=== PATIENT | female | born 1965 | race Caucasian/White ===

== ENCOUNTER 2024-07-05 13:15 | Emergency (ER) | payer BC ==
[2024-07-05] MEDS ORDERED: NA CHLORIDE 0.9% 500 ML ONE (14:01)
[2024-07-05] MEDS ORDERED: LORazepam 2 MG/ML VIAL ONE (14:01)
[2024-07-05 14:09] LABS: PT Prothrombin Time 11.6 SECONDS (9.4-12.5); Protime INR 1.04
--- NOTE | 2024-07-05 14:25 | RAD REPORT ---
EXAMINATION: CT HEAD WITHOUT CONTRAST CLINICAL INDICATION: Female, 59 years old.DIZZINESS TECHNIQUE: Axial CT images from the skull base to the vertex without intravenous contrast. Coronal an d sagittal reformatted images were created from the data set. One or more of the following dose reduction techniques were used: Automated exposure control, adjustment of the mA and/or kV according to patient size, and/or iterative reconstruction. Unless otherwise specified, incidental findings do not require dedicated imaging follow-up. [id number]. COMPARISON: No prior exam. FINDINGS: INTRACRANIAL: No acute intracranial hemorrhage. No hydrocephalus. No mass effect or midline shift. No significant white matter disease. VASCULATURE: No visualized abnormalities in the arteries or dural venous sinuses. SCALP/SKULL: No significant soft tissue or osseous abnormalities. SINUSES: The visualized paranasal sinuses and mastoid air cells are predominantly clear. IMPRESSION: No acute intracranial abnormality.
[2024-07-05 14:29] LABS: Absolute Basophils 0.1 K/uL (0-0.5); Absolute Eosinophils 0.2 K/uL (0-0.5); Absolute Lymphocytes (CBC) 2.1 K/uL (0.7-4.9); Absolute Monocytes 0.6 K/uL (0.1-1.3); Basophils % 0.6 % (0-1.3); Eosinophils % 1.9 % (0-4.4); Hematocrit 40.9 % (36.0-45.0); Hemoglobin 13.7 g/dL (12.0-15.0); MCHC 33.6 g/dL (32.0-36.0); MCV 89.1 fL (80-100); MPV 8.4 fL (7.6-11.3); Neutrophils % 66.5 % (41.7-73.7); Platelets 202 thou/uL (152-406); RBC Red Blood Cell Count 4.59 M/uL (3.86-4.86); Red Cell Distribution Width 12.8 % (12.1-15.2)
[2024-07-05 14:37] LABS: ALT/SGPT 24 U/L (13-56); AST/SGOT 21 U/L (15-37); Albumin 3.5 g/dL (3.4-5.0); Alkaline Phosphatase 71 U/L (45-117); Anion Gap 9.5 mEq/L (5.0-15.0); BUN Blood Urea Nitrogen 14 mg/dL (7-18); Bicarbonate 27 mEq/L (21-32); Bilirubin Direct < 0.2 mg/dL (0-0.2); Bilirubin Indirect, Calculated 0.2 mg/dL (0.2-0.8); Bilirubin Total 0.4 mg/dL (0.2-1.0); Globulin 3.5 g/dL (2.3-3.5); Glomerular Filtration Rate 53 ml/min (=/>90); Glucose Level 107 mg/dL (74-106); Magnesium 2.5 mg/dL (1.6-2.4); NT PRO-BNP 216 pg/mL (<125); Potassium 4.5 mEq/L (3.5-5.1); Sodium Level 137 mEq/L (136-145); Troponin High Sensitivity 4.6 pg/mL (<58.9)
--- NOTE | 2024-07-05 14:50 | RAD REPORT ---
EXAM: Chest Single View HISTORY: COUGH COMPARISON: None. FINDINGS: LUNGS/PLEURA: Nodular opacity overlying the right upper lobe measuring 12 mm which is not clearly trevor cified. The lungs are otherwise clear. MEDIASTINUM: The mediastinal silhouette is within normal limits. CARDIAC: The cardiac silhouette is within normal limits. UPPER ABDOMEN: No significant abnormality. BONES: No acute fracture. LINES/TUBES/OTHER: N/A IMPRESSION: No evidence of acute cardiopulmonary disease. Right upper lobe nodule. Further evaluation with chest CT which need not be the emergent is recommended.
[2024-07-05 16:04] LABS: Specific Gravity 1.006 (1.005-1.030); Sqamous Epithelial <5 /HPF (None Seen); Urine Bacteria None Seen /HPF (<20); Urine Bilirubin NEGATIVE (Negative); Urine Blood Negative (Negative); Urine Clarity Clear (Clear); Urine Color Colorless (Yellow); Urine Culture Reflex Order NOT NEEDED; Urine Glucose NEGATIVE (Negative); Urine Ketones NEGATIVE (Negative); Urine Microscopic Reflex YN ORDER UMIC; Urine Nitrite NEGATIVE (Negative); Urine Protein NEGATIVE (Negative); Urine RBC None Seen /HPF (None Seen); Urine Urobilinogen Normal (Normal); Urine WBC <5 /HPF (<5); Urine pH 7.5 (5.0-7.0)
--- NOTE | 2024-07-05 16:17 | EDPHYS ---
Physician Documentation [facility] Name: Gabby Coronel Age: 59 yrs Sex: Female : 1965 Arrival Date: 07/05/2024 Time: 13:15 Bed 5 Private MD: ED Physician Micah Henderson HPI: 07/05 16:05 This 59 yrs old Female presents to ER via EMS with complaints of WEAKNESS, shayan SHAKEY, TINGLING. 16:05 WEAKNESS. Onset: The symptoms/episode began/occurred 2 day(s) ago. Severity of shayan symptoms: At their worst the symptoms were mild in the emergency department the symptoms are unchanged. The patient has not experienced similar symptoms in the past. Historical: - Allergies: 13:22 Codeine; jl7 - Home Meds: 13:22 None [Active]; jl7 - PMHx: 13:22 Anxiety; Depressive disorder; jl7 - Immunization history:: Adult Immunizations unknown. - Infectious Disease History:: Denies. - Social history:: Smoking status: Patient denies any tobacco usage or history of. ROS: 16:06 Constitutional: Negative for fever, chills, and weight loss, Eyes: Negative for injury, shayan pain, redness, and discharge, ENT: Negative for injury, pain, and discharge, Neck: Negative for injury, pain, and swelling, Cardiovascular: Negative for chest pain, palpitations, and edema, Respiratory: Negative for shortness of breath, cough, wheezing, and pleuritic chest pain, Abdomen/GI: Negative for abdominal pain, nausea, vomiting, diarrhea, and constipation, Back: Negative for injury and pain, : Negative for injury, bleeding, discharge, and swelling, MS/Extremity: Negative for injury and deformity, Skin: Negative for injury, rash, and discoloration, Psych: Negative for depression, anxiety, suicide ideation, homicidal ideation, and hallucinations, Allergy/Immunology: Negative for hives, rash, and allergies, Endocrine: Negative for neck swelling, polydipsia, polyuria, polyphagia, and marked weight changes, Hematologic/Lymphatic: Negative for swollen nodes, abnormal bleeding, and unusual bruising, 16:06 Neuro: Positive for tingling, weakness, SHAKEY, Exam: 16:06 Constitutional: This is a well developed, well nourished patient who is awake, alert, shayan and in no acute distress. Head/Face: Normocephalic, atraumatic. Eyes: Pupils equal round and reactive to light, extra-ocular motions intact. Lids and lashes normal. Conjunctiva and sclera are non-icteric and not injected. Cornea within normal limits. Periorbital areas with no swelling, redness, or edema. ENT: Nares patent. No nasal discharge, no septal abnormalities noted. Tympanic membranes are normal and external auditory canals are clear. Oropharynx with no redness, swelling, or masses, exudates, or evidence of obstruction, uvula midline. Mucous membranes moist. Neck: Trachea midline, no thyromegaly or masses palpated, and no cervical lymphadenopathy. Supple, full range of motion without nuchal rigidity, or vertebral point tenderness. No Meningismus. Chest/axilla: Normal chest wall appearance and motion. Nontender with no deformity. No lesions are appreciated. Cardiovascular: Regular rate and rhythm with a normal S1 and S2. No gallops, murmurs, or rubs. Normal PMI, no JVD. No pulse deficits. Respiratory: Lungs have equal breath sounds bilaterally, clear to auscultation and percussion. No rales, rhonchi or wheezes noted. No increased work of breathing, no retractions or nasal flaring. Abdomen/GI: Soft, non-tender, with normal bowel sounds. No distension or tympany. No guarding or rebound. No evidence of tenderness throughout. Back: No spinal tenderness. No costovertebral tenderness. Full range of motion. Skin: Warm, dry with normal turgor. Normal color with no rashes, no lesions, and no evidence of cellulitis. MS/ Extremity: Pulses equal, no cyanosis. Neurovascular intact. Full, normal range of motion., bilateral aka Psych: Awake, alert, with orientation to person, place and time. Behavior, mood, and affect are within normal limits. 16:06 ECG was reviewed by the Attending Physician. 16:06 Musculoskeletal/extremity: ROM: no acute changes, intact in all extremities, full active range of motion, full passive range of motion, Circulation is intact in all extremities. Sensation intact. Compartment Syndrome exam of affected extremity: is normal. no pain, no numbness, no tingling, no sensation deficit, no palor, Weight bearing: able to fully bear weight, without difficulty, DVT Exam: No signs of deep vein thrombosis. no pain, no swelling, no tenderness, negative Homans' sign noted on exam, no appreciated bluish discoloration, no erythema, no increased warmth, Vital Signs: 13:15 BP 179 / 83; Pulse 78; Resp 15; Temp 97.9; Pulse Ox 100% ; Weight 81.65 kg; Height 5 [facility] ft. 2 in. ; Pain 0/10; 13:30 BP 174 / 84; Pulse 73; Resp 18; Pulse Ox 99% ; ko1 14:30 BP 169 / 78; Pulse 68; Resp 16; Pulse Ox 99% ; ko1 16:00 BP 135 / 68; Pulse 69; Resp 16; Pulse Ox 99% ; ko1 16:50 BP 156 / 68 Supine; Pulse 72; ko1 16:51 BP 160 / 82 Sitting; Pulse 82; ko1 16:52 BP 166 / 82 Standing; Pulse 82; ko1 13:15 Body Mass Index 32.92 (81.65 kg, 157.48 cm) [facility] 13:15 Pain Scale: Adult [facility] NIH Stroke Scale Scores: 16:06 NIHSS Score: 0 shayan MDM: 13:19 Medical Screening Exam initiated [facility] 16:14 Differential Diagnosis altered mental status, sepsis, flu. Data reviewed: vital signs, [facility] nurses notes, lab test result(s), EKG, radiologic studies, CT scan, plain films. Consideration of Admission/Observation Escalation of care including admission/observation considered. I considered the following discharge prescriptions or medication management in the emergency department Medications were administered in the Emergency Department. See MAR. Independent interpretation of the following test(s) in the Emergency Department EKG: See my EKG interpretation above. Test considered but Not performed: MRI: NO MRI BRAIN. Historians other than the Patient: PT WELL INFORMED. Care significantly affected by the following chronic conditions: ANXIETY , DEPRESSION. Counseling: I had a detailed discussion with the patient and/or guardian regarding the historical points, exam findings, and any diagnostic results supporting the discharge/admit diagnosis, lab results, radiology results, the need for outpatient follow up, for definitive care, a family practitioner, a neurologist. 07/05 13:40 Order name: Basic Metabolic Panel; Complete Time: 14:45 [facility] 07/05 13:40 Order name: CBC with Diff; Complete Time: 14:45 [facility] 07/05 13:40 Order name: LFT's; Complete Time: 14:45 [facility] 07/05 13:40 Order name: Magnesium; Complete Time: 14:45 shayan 07/05 13:40 Order name: NT PRO-BNP; Complete Time: 14:45 shayan 07/05 13:40 Order name: PT-INR; Complete Time: 14:45 [facility] 07/05 13:40 Order name: Troponin HS; Complete Time: 14:45 [facility] 07/05 13:40 Order name: Urinalysis w/ reflexes [facility] 07/05 14:20 Order name: ETOH Level; Complete Time: 15:57 jl7 07/05 13:40 Order name: XRAY Chest (1 view); Complete Time: 15:57 [facility] 07/05 13:40 Order name: CT Head Brain wo Cont; Complete Time: 14:45 [facility] 07/05 13:40 Order name: Cardiac monitoring; Complete Time: 14:06 [facility] 07/05 13:40 Order name: EKG - Nurse/Tech; Complete Time: 13:54 [facility] 07/05 13:40 Order name: IV Saline Lock; Complete Time: 14:06 [facility] 07/05 13:40 Order name: Labs collected and sent; Complete Time: 14:06 [facility] 07/05 13:40 Order name: O2 Per Protocol; Complete Time: 14:06 [facility] 07/05 13:40 Order name: O2 Sat Monitoring; Complete Time: 14:06 [facility] 07/05 16:03 Order name: Misc. Order: AMBULATE; Complete Time: 17:03 [facility] 07/05 16:03 Order name: Orthostatics; Complete Time: 17:01 [facility] 07/05 16:03 Order name: PO challenge; Complete Time: 17:01 [facility] EC:06 Rate is 75 beats/min. Rhythm is regular. QRS [place] is Normal. IN interval is normal. QRS shayan interval is normal. QT interval is normal. No Q waves. T waves are Normal. No ST changes noted. Clinical impression: Normal ECG and No evidence of ischemia. Interpreted by me. Reviewed by me. Administered Medications: 14:25 Drug: NS 0.9% IV 500 ml 500 ml IV at 1 bolus once; to be given as a bolus over 30 jl7 minutes Volume: 500 ml; Route: IV; Rate: 1 bolus; Site: right hand; 15:00 Follow up: Response: No adverse reaction; IV Status: Completed infusion; IV Intake: jl7 500ml 14:25 Drug: Ativan IVP 1 mg IVP once Route: IVP; Site: right hand; jl7 15:00 Follow up: Response: No adverse reaction 7 17:03 Drug: Aspirin PO Chewable Tablet 81 mg PO once Route: PO; jl7 17:17 Follow up: Response: No adverse reaction; Medication administered at discharge. ko1 Disposition Summary: 07/05/24 16:17 Discharge Ordered Notes: Location: Home shayan Problem: new shayan Symptoms: have improved shayan Condition: Stable shayan Diagnosis - Weakness shayan - Anxiety disorder, unspecified shayan Followup: shayan - With: Private Physician - When: 2 - 3 days - Reason: Recheck today's complaints, Continuance of care, Re-evaluation by your physician Followup: shayan - With: Jose La MD - When: 2 - 3 days - Reason: Recheck today's complaints, Re-evaluation by your physician Discharge Instructions: - Discharge Summary Sheet shayan - Fall Prevention in the Home, Adult shayan - Weakness shayan - Fatigue shayan - Fall Prevention in the Home, Adult, [id number] shayan - Weakness, [id number]-[id number] shayan - Aspirin and Your Heart shayan - Deconditioning shayan - Managing Anxiety, Adult shayan Forms: - Medication Reconciliation Form shayan - Antibiotic Education shayan - Prescription Opioid Use shayan - Patient Portal Instructions [facility] - Leadership Thank You Letter [facility] NIH Stroke Scale - NIH Stroke Score Date: 07/05/2024 Time: 16:06 Total Score = 0 10. Dysarthria (speech clarity - read or repeat words) - 0(Normal) 11. Extinction and Inattention (visual/tactile/auditory/spatial/personal) - 0(No abnormality) 1a. Level of Consciousness (LOC) - 0(Alert) 1b. Level of Consciousness (LOC) (Month \T\ Age) - 0(Both) 1c. LOC Commands (Open \T\ Closes Eyes/Dental Treatment Coordinator) - 0(Both) 2. Best Gaze (Lateral Gaze Paresis) - 0(Normal) 3. Visual Field Loss - 0(No visual loss) 4. Facial Palsy - 0(Normal) 5a. Left Arm: Motor (10-second hold) - 0(No drift) 5b. Right Arm: Motor (10-second hold) - 0(No drift) 6a. Left Leg: Motor (5-second hold - always test supine) - 0(No drift) 6b. Right Leg: Motor (5-second hold - always test supine) - 0(No drift) 7. Limb Ataxia (finger/nose \T\ heel/vicente - test with eyes open) - 0(Absent) 8. Sensory Loss (pinprick arms/legs/face) - 0(Normal) 9. Best Language: Aphasia (description/naming/reading) - 0(No aphasia) Initials: shayan Signatures: Dispatcher [employer] EDMS Micah Henderson MD MD cha Leal, Jahala, RN RN jl7 Ceci Corona RN ko1 Corrections: (The following items were deleted from the chart) 13:23 13:22 Allergies: No Known Allergies; jl7 jl7 13:40 13:40 BASIC METABOLIC PANEL+C.LAB.BRZ ordered. EDMS EDMS 13:40 13:40 CBC+H.LAB.BRZ ordered. EDMS EDMS 13:40 13:40 HEPATIC FUNCTION+C.LAB.BRZ ordered. EDMS EDMS 13:40 13:40 MAGNESIUM+C.LAB.BRZ ordered. EDMS EDMS 13:40 13:40 PROBNP+C.LAB.BRZ ordered. EDMS EDMS 13:40 13:40 PROTIME (+INR)+COAG.LAB.BRZ ordered. EDMS EDMS 13:40 13:40 Troponin High Sensitivity+C.LAB.BRZ ordered. EDMS EDMS 13:40 13:40 Urinalysis+U.LAB.BRZ ordered. EDMS EDMS 13:40 13:40 Chest Single View+RAD.RAD.BRZ ordered. EDMS EDMS 13:41 13:40 Head Brain Wo Cont+CT.RAD.BRZ ordered. EDMS EDMS
--- NOTE | 2024-07-05 16:17 | ER ---
Nurse's Notes [facility] Name: Gabby Coronel Age: 59 yrs Sex: Female : 1965 Arrival Date: 07/05/2024 Time: 13:15 Bed 5 Private MD: Diagnosis: Weakness;Anxiety disorder, unspecified Presentation: 07/05 13:15 Chief complaint: EMS states: Toned out for tingling arms, pt reported tingling to right jl7 leg yesterday and today bilateral arms. 13:15 Method Of Arrival: EMS: [facility] jl7 13:15 Coronavirus screen: At this time, the client does not indicate any symptoms associated jl7 with coronavirus-19. Ebola Screen: No symptoms or risks identified at this time. Initial Sepsis Screen: Does the patient meet any 2 criteria? No. Patient's initial sepsis screen is negative. Does the patient have a suspected source of infection? No. Patient's initial sepsis screen is negative. Risk Assessment: Do you want to hurt yourself or someone else? Patient reports no desire to harm self or others. Onset of symptoms was July 04, 2024. Care prior to arrival: None. 13:15 Acuity: HARIKA 3 jl7 Triage Assessment: 13:22 General: Appears in no apparent distress. uncomfortable, Behavior is cooperative, jl7 crying. Pain: Denies pain. Neuro: Level of Consciousness is awake, alert, obeys commands, Oriented to person, place, time, situation, Reports tingling to bilateral arms. Cardiovascular: Patient's skin is warm and dry. Respiratory: Airway is patent Respiratory effort is even, unlabored, Respiratory pattern is regular, symmetrical. Derm: Skin is pink, warm \T\ dry. Historical: - Allergies: 13:22 Codeine; jl7 - Home Meds: 13:22 None [Active]; jl7 - PMHx: 13:22 Anxiety; Depressive disorder; jl7 - Immunization history:: Adult Immunizations unknown. - Infectious Disease History:: Denies. - Social history:: Smoking status: Patient denies any tobacco usage or history of. Screenin:00 [facility] ED Fall Risk Assessment (Adult) History of falling in the last 3 months, ko1 including since admission No falls in past 3 months (0 pts) Confusion or Disorientation No (0 pts) Intoxicated or Sedated No (0 pts) Impaired Gait Yes (1 pt) Mobility Assist Device Used Yes (1 pt) Altered Elimination No (0 pt) Score/Fall Risk Level 0 - 2 = Low Risk Oriented to surroundings, Maintained a safe environment, Educated pt \T\ family on fall prevention, incl call for assistance when getting out of bed, Assessed \T\ reinforced patient's understanding of fall precautions, Provided non-skid footwear, Hourly rounding (assess needs \T\ fall precautionary measures) done. Abuse screen: Denies threats or abuse. Denies injuries from another. Nutritional screening: No deficits noted. Tuberculosis screening: No symptoms or risk factors identified. Assessment: 14:00 General: Appears in no apparent distress. Behavior is cooperative, appropriate for age. ko1 Pain: Denies pain. Neuro: Reports tingling in right leg. Cardiovascular: No deficits noted. Respiratory: No deficits noted. GI: No deficits noted. : No deficits noted. EENT: No deficits noted. Derm: No deficits noted. Musculoskeletal: No deficits noted. Vital Signs: 13:15 BP 179 / 83; Pulse 78; Resp 15; Temp 97.9; Pulse Ox 100% ; Weight 81.65 kg; Height 5 jl7 ft. 2 in. ; Pain 0/10; 13:30 BP 174 / 84; Pulse 73; Resp 18; Pulse Ox 99% ; ko1 14:30 BP 169 / 78; Pulse 68; Resp 16; Pulse Ox 99% ; ko1 16:00 BP 135 / 68; Pulse 69; Resp 16; Pulse Ox 99% ; ko1 16:50 BP 156 / 68 Supine; Pulse 72; ko1 16:51 BP 160 / 82 Sitting; Pulse 82; ko1 16:52 BP 166 / 82 Standing; Pulse 82; ko1 13:15 Body Mass Index 32.92 (81.65 kg, 157.48 cm) jl7 13:15 Pain Scale: Adult [facility] NIH Stroke Scale Scores: 16:06 NIHSS Score: 0 [facility] ED Course: 13:18 Patient arrived in ED. ko1 13:19 Micah Henderson MD is Attending Physician. [facility] 13:20 Brandon Elder RN is Primary Nurse. jl7 13:22 Triage completed. jl7 13:22 Arm band placed on right wrist. jl7 13:25 Patient has correct armband on for positive identification. Bed in low position. Call jl7 light in reach. Side rails up X2. Provided Education on: use of call coronado. Client placed on continuous cardiac and pulse oximetry monitoring. NIBP monitoring applied. 13:25 Warm blanket given. jl7 13:54 EKG done, by ED staff, reviewed by Micah Henderson MD. em1 14:00 No provider procedures requiring assistance completed. ko1 14:06 Initial lab(s) drawn, by me, sent to lab. Inserted saline lock: 20 gauge in right hand, jl7 using aseptic technique. Blood collected. Flushed with 10 mL NS. 14:10 CT Head Brain wo Cont In Process Unspecified. EDMS 14:47 XRAY Chest (1 view) In Process Unspecified. EDMS 16:17 Jose La MD is Referral Physician. shayan 17:17 IV discontinued, intact, bleeding controlled, No redness/swelling at site. Pressure ko1 dressing applied. Administered Medications: 14:25 Drug: NS 0.9% IV 500 ml 500 ml IV at 1 bolus once; to be given as a bolus over 30 jl7 minutes Volume: 500 ml; Route: IV; Rate: 1 bolus; Site: right hand; 15:00 Follow up: Response: No adverse reaction; IV Status: Completed infusion; IV Intake: jl7 500ml 14:25 Drug: Ativan IVP 1 mg IVP once Route: IVP; Site: right hand; jl7 15:00 Follow up: Response: No adverse reaction jl7 17:03 Drug: Aspirin PO Chewable Tablet 81 mg PO once Route: PO; jl7 17:17 Follow up: Response: No adverse reaction; Medication administered at discharge. ko1 Medication: 14:00 VIS not applicable for this client. ko1 Intake: 15:00 IV: 500ml; Total: 500ml. jl7 Outcome: 16:17 Discharge ordered by . shayan 17:17 Discharged to home via wheelchair, with family, ko1 17:17 Condition: stable 17:17 Discharge instructions given to patient, Instructed on discharge instructions, follow up and referral plans. Demonstrated understanding of instructions, follow-up care, 17:18 Patient left the ED. ko1 NIH Stroke Scale - NIH Stroke Score Date: 07/05/2024 Time: 16:06 Total Score = 0 10. Dysarthria (speech clarity - read or repeat words) - 0(Normal) 11. Extinction and Inattention (visual/tactile/auditory/spatial/personal) - 0(No abnormality) 1a. Level of Consciousness (LOC) - 0(Alert) 1b. Level of Consciousness (LOC) (Month \T\ Age) - 0(Both) 1c. LOC Commands (Open \T\ Closes Eyes/Tax Attorney) - 0(Both) 2. Best Gaze (Lateral Gaze Paresis) - 0(Normal) 3. Visual Field Loss - 0(No visual loss) 4. Facial Palsy - 0(Normal) 5a. Left Arm: Motor (10-second hold) - 0(No drift) 5b. Right Arm: Motor (10-second hold) - 0(No drift) 6a. Left Leg: Motor (5-second hold - always test supine) - 0(No drift) 6b. Right Leg: Motor (5-second hold - always test supine) - 0(No drift) 7. Limb Ataxia (finger/nose \T\ heel/vicente - test with eyes open) - 0(Absent) 8. Sensory Loss (pinprick arms/legs/face) - 0(Normal) 9. Best Language: Aphasia (description/naming/reading) - 0(No aphasia) Initials: shayan Signatures: Dispatcher [employer] EDMS Micah Henderson MD MD cha Martinez, Eric em1 Brandon Elder RN RN jl7 Ceci Corona RN RN ko1 Corrections: (The following items were deleted from the chart) 13:23 13:22 Allergies: No Known Allergies; sky jlLev
[2024-07-05] MEDS ORDERED: ASPIRIN EC 81 MG TAB PO ONE (16:58)
[2024-07-05 18:41] VITALS: TEMP 97.9
[2024-07-05 18:46] VITALS: O2SAT 99
[2024-07-05 19:01] VITALS: BP 166/82
--- NOTE | 2024-07-06 14:13 | EKG ---
Test Date: 2024-07-05 Test Time: 13:51:44 Assistant Inventory Manager: FILIBERTO MEASUREMENT RESULTS: Intervals: Rate: 75 MO: 160 QRSD: 88 QT: 382 QTc: 426 [place]: P: 56 MO: 160 QRS: 4 T: 25 INTERPRETIVE STATEMENTS: Normal sinus rhythm Normal ECG No previous ECG available for comparison Electronically Signed On 07-06-24 14:11:14 REGISTERED NURSE STEP DOWN by Nick Morocho
== END 2024-07-05 17:18 | disposition home or self-care (01) ==
LOC: ER 13:15
DX: R53.1 Weakness (principal); F41.9 Anxiety disorder, unspecified; R20.2 Paresthesia of skin
CPT/HCPCS: 96361; 93005; 85025; 81001; 80048; 36415; 83735; 85610; 80076; 84484; 83880; 70450; 71045; 96374; 99285; 82077; J7040